=== PATIENT | female | born 1985 | race Caucasian/White ===

== ENCOUNTER 2021-04-01 13:55 | Emergency (ER) | payer OTHER ==
[~2021-04-01] VITALS: Ht 165.1 cm; Wt 100.9 kg
[2021-04-01] MEDS ORDERED: CITALOPRAM40 MG PO (14:32)
[2021-04-01] MEDS ORDERED: SILVADENE11 TP (15:24)
[2021-04-01 15:35] VITALS: BP 126/80
== END 2021-04-01 15:47 | disposition home or self-care (01) ==
LOC: ED 13:55
DX: T25.221A Burn of second degree of right foot, initial encounter (principal); F32.9 Major depressive disorder, single episode, unspecified; Z79.899 Other long term (current) drug therapy; X10.1XXA Contact with hot food, initial encounter; Y92.59 Other trade areas as the place of occurrence of the external cause; Y99.0 Civilian activity done for income or pay
CPT/HCPCS: 90715